=== PATIENT | male | born 1970 | race Two or more races ===

== ENCOUNTER 2016-12-31 01:47 | Inpatient (IN) | payer OTHER ==
[2016-12-31] VITALS (17 sets, daily range): BP systolic 112–137; BP diastolic 64–79
[2016-12-31] MEDS ORDERED: NITROGLYCERIN 0.4 MG/TAB BOTTLE SL PRN (06:00)
[2016-12-31] MEDS ORDERED: ONDANSETRON HCL/PF 4 MG/2 ML VIAL IVP PRN (06:00)
[2016-12-31] MEDS ORDERED: MAGNESIUM HYDROXIDE 30 ML UDC PO PRN (06:00)
[2016-12-31] MEDS ORDERED: ZOLPIDEM TARTRATE 5 MG TABLET PO PRN (06:00)
[2016-12-31] MEDS ORDERED: HYDROCODONE/APAP 5/325MG 1 EACH TABLET PO PRN (06:00)
[2016-12-31] MEDS ORDERED: ALBU8.5H2 IH (06:13)
[2016-12-31] MEDS ORDERED: METO25TA6 PO (06:13)
[2016-12-31] MEDS ORDERED: CLOP75TA2 PO (06:13)
[2016-12-31] MEDS ORDERED: LOSA25TA13 PO (06:13)
[2016-12-31] MEDS ORDERED: ACETAMINOPHEN 325 MG TABLET ONE (06:15)
[2016-12-31] MEDS: ACETAMINOPHEN 325 MG TABLET PO PRN (06:36)
[2016-12-31] MEDS: PANTOPRAZOLE 40 MG TABLET.DR PO SCH (07:30)
[2016-12-31] MEDS ORDERED: ASPI-991 PO (08:23)
[2016-12-31] MEDS ORDERED: ASPIRIN 81 MG TAB.CHEW PO SCH (09:00)
[2016-12-31 10:37] LABS: BASOPHILS % (AUTO) 0.5 % (0.0-2.0); DIFF TOTAL % 100 %; EOSINOPHILS # (AUTO) 0.2 /CMM (0.0-0.7); EOSINOPHILS % (AUTO) 3.2 % (0.0-6.0); HEMATOCRIT 23 % (39-51); LYMPHOCYTES # (AUTO) 2.1 /CMM (0.8-4.8); LYMPHOCYTES % (AUTO) 38.3 % (20.0-44.0); MEAN CORPUSCULAR HEMOGLOBIN 21 PG (26.0-33.0); MEAN CORPUSCULAR HGB CONC 31 g/dl (31.0-36.0); MEAN CORPUSCULAR VOLUME 69 fL (80-96); MONOCYTES # (AUTO) 0.4 /CMM (0.1-1.30); MONOCYTES % (AUTO) 7.7 % (2.0-12.0); NEUTROPHILS # (AUTO) 2.7 /CMM (1.8-8.9); NEUTROPHILS % (AUTO) 50.3 % (43.0-81.0); PLATELET COUNT (AUTO) 242 /CMM (150-450); WHITE BLOOD COUNT (AUTO) 5.4 K/uL (4.3-11.0)
[2016-12-31 10:50] LABS: CALCIUM, SERUM 8.7 mg/dL (8.5-10.1); POTASSIUM 4.3 mmol/L (3.5-5.1)
[2016-12-31 10:55] LABS: ALBUMIN 3.6 g/dL (3.4-5.0); BILIRUBIN,TOTAL 0.2 mg/dL (0.2-1.0); PHOSPHORUS 3.1 mg/dL (2.5-4.9); TOTAL PROTEIN, SERUM 6.8 g/dL (6.4-8.2)
[2016-12-31 11:14] LABS: LYMPHOCYTES % (MANUAL) 35 % (16-48); PLATELET ESTIMATE ADEQUATE
[2016-12-31 11:15] LABS: ANISOCYTOSIS 2+; HYPOCHROMASIA 2+; MICROCYTOSIS 2+
[2016-12-31 11:16] LABS: POLYCHROMASIA 1+
[2016-12-31] MEDS ORDERED: REGADENOSON 0.4 MG/5 ML DISP.SYRIN IVP ONE (12:00)
[2016-12-31] MEDS ORDERED: BLOOD IV SET 1 EA INFUS.SET MC ONE (14:26)
[2016-12-31] MEDS ORDERED: IV NS 0.9% 250 ML IV ONE (14:26)
[2016-12-31] MEDS: METOPROLOL TARTRATE 25 MG TABLET PO SCH (21:20)
[2017-01-01] VITALS (8 sets, daily range): BP systolic 122–144; BP diastolic 76–93
[2017-01-01 07:02] LABS: BASOPHILS % (AUTO) 0.2 % (0.0-2.0); DIFF TOTAL % 100 %; EOSINOPHILS # (AUTO) 0.2 /CMM (0.0-0.7); HEMATOCRIT 31 % (39-51); LYMPHOCYTES # (AUTO) 1.7 /CMM (0.8-4.8); LYMPHOCYTES % (AUTO) 27.3 % (20.0-44.0); MEAN CORPUSCULAR HEMOGLOBIN 24 PG (26.0-33.0); MEAN CORPUSCULAR HGB CONC 32 g/dl (31.0-36.0); MEAN CORPUSCULAR VOLUME 73 fL (80-96); MONOCYTES # (AUTO) 0.4 /CMM (0.1-1.30); NEUTROPHILS % (AUTO) 63.5 % (43.0-81.0); PLATELET COUNT (AUTO) 237 /CMM (150-450); RED BLOOD CELL COUNT(AUTO) 4.24 MIL/uL (4.5-6.0); WHITE BLOOD COUNT (AUTO) 6.4 K/uL (4.3-11.0)
[2017-01-01 07:09] LABS: INR 0.97 (0.87-1.13); PROTHROMBIN TIME 10.5 SECS (9.5-12.7)
[2017-01-01 07:14] LABS: THYROID STIMULATING HORMONE 0.867 uIU/mL (0.358-3.74)
[2017-01-01] MEDS: PANTOPRAZOLE 40 MG TABLET.DR PO SCH (07:30)
[2017-01-01 07:36] LABS: CALCIUM, SERUM 8.9 mg/dL (8.5-10.1); CREATININE 0.9 mg/dL (0.6-1.3); PHOSPHORUS 3.6 mg/dL (2.5-4.9); POTASSIUM 4.2 mmol/L (3.5-5.1)
[2017-01-01] MEDS: LOSARTAN POTASSIUM 25 MG TABLET PO SCH (09:00)
[2017-01-01] MEDS: METOPROLOL TARTRATE 25 MG TABLET PO SCH ×2 (09:00→21:09)
[2017-01-01] MEDS ORDERED: PEG 3350/NA SULF,BICARB,CL/KCL 4,000 ML BOTTLE PO ONE ×3 (13:30→14:30)
[2017-01-01] MEDS ORDERED: IV SET PRIMARY PUMP SET 1 EA INFUS.SET MC ONE (14:56)
[2017-01-01] MEDS: SOD FERRIC GLUC 125 MG in IV NS 0.9% 100 ML IV SCH (15:13)
[2017-01-01] MEDS: ACETAMINOPHEN 325 MG TABLET PO PRN (18:10)
[2017-01-02 06:49] LABS: BASOPHILS % (AUTO) 0.3 % (0.0-2.0); DIFF TOTAL % 100 %; EOSINOPHILS # (AUTO) 0.2 /CMM (0.0-0.7); EOSINOPHILS % (AUTO) 3.1 % (0.0-6.0); HEMATOCRIT 29 % (39-51); HEMOGLOBIN 9.5 g/dL (13.5-17.5); LYMPHOCYTES # (AUTO) 1.9 /CMM (0.8-4.8); LYMPHOCYTES % (AUTO) 29.7 % (20.0-44.0); MEAN CORPUSCULAR HEMOGLOBIN 24 PG (26.0-33.0); MEAN CORPUSCULAR HGB CONC 33 g/dl (31.0-36.0); MEAN CORPUSCULAR VOLUME 74 fL (80-96); MONOCYTES # (AUTO) 0.5 /CMM (0.1-1.30); MONOCYTES % (AUTO) 7.8 % (2.0-12.0); NEUTROPHILS # (AUTO) 3.8 /CMM (1.8-8.9); NEUTROPHILS % (AUTO) 59.1 % (43.0-81.0); PLATELET COUNT (AUTO) 227 /CMM (150-450); RED BLOOD CELL COUNT(AUTO) 3.95 MIL/uL (4.5-6.0); WHITE BLOOD COUNT (AUTO) 6.4 K/uL (4.3-11.0)
[2017-01-02 07:17] LABS: ALBUMIN 3.8 g/dL (3.4-5.0); BILIRUBIN,TOTAL 0.2 mg/dL (0.2-1.0); CREATININE 0.9 mg/dL (0.6-1.3); PHOSPHORUS 3.7 mg/dL (2.5-4.9); POTASSIUM 4.2 mmol/L (3.5-5.1); TOTAL PROTEIN, SERUM 7.2 g/dL (6.4-8.2)
[2017-01-02] MEDS: METOPROLOL TARTRATE 25 MG TABLET PO SCH (09:55)
[2017-01-02] MEDS: LOSARTAN POTASSIUM 25 MG TABLET PO SCH (09:55)
[2017-01-02] MEDS: PANTOPRAZOLE 40 MG TABLET.DR PO SCH (09:56)
[2017-01-02 10:00] VITALS: BP 122/64
[2017-01-02] MEDS ORDERED: IV SET PRIMARY PUMP SET 1 EA INFUS.SET MC ONE (14:14)
[2017-01-02] MEDS: SOD FERRIC GLUC 125 MG in IV NS 0.9% 100 ML IV SCH (15:42)
[2017-01-02 15:53] VITALS: BP 104/55
[2017-01-02 16:00] VITALS: BP 104/55
== END 2017-01-02 17:20 | disposition home or self-care (01) | DRG 395 ==
LOC: TELE 05:30 → MED 01-01 09:09
PROVIDERS: ADMIT Internal Medicine; ATTEND Internal Medicine
PROC: 0DB68ZX Excision of Stomach, Via Natural or Artificial Opening Endoscopic, Diagnostic (ICD-10-PCS; principal; 2016-12-31)
PROC: 30233N1 Transfusion of Nonautologous Red Blood Cells into Peripheral Vein, Percutaneous Approach (ICD-10-PCS; principal; 2016-12-31)
PROC: 0DJD8ZZ Inspection of Lower Intestinal Tract, Via Natural or Artificial Opening Endoscopic (ICD-10-PCS; 2017-01-02 08:22)
DX: K64.9 Unspecified hemorrhoids (principal); I25.10 Atherosclerotic heart disease of native coronary artery without angina pectoris; K59.00 Constipation, unspecified; F17.210 Nicotine dependence, cigarettes, uncomplicated; I10 Essential (primary) hypertension; Z91.041 Radiographic dye allergy status; D50.0 Iron deficiency anemia secondary to blood loss (chronic); Z98.61 Coronary angioplasty status; E66.3 Overweight; B96.81 Helicobacter pylori [H. pylori] as the cause of diseases classified elsewhere; R07.9 Chest pain, unspecified
CPT/HCPCS: 36415; 80048-TC; 80053-TC; 80061-TC; 82728-TC; 83540-TC; 83735-TC; 84100-TC; 84443-TC; 84484-TC; 85025-TC; 85610-TC; 86850-TC; 86921-TC; 87081-TC; 88305-TC; 88313-TC; 88342; 93307-TC; A9502; J2001; J2704; J2785; J2916; J7030; J7050; P9016-BL; Z7610